=== PATIENT | male | born 1985 | race Hispanic/Latino ===

== ENCOUNTER 2017-07-01 13:39 | Emergency (ER) | payer SELFPAY ==
[~2017-07-01 13:39] MED LIST: Iopamidol 370 76% 100 ML VIAL ONE
[2017-07-01 14:23] LABS: #Basophils 0.1 thou/uL (0.0-0.2); #Monocytes 0.5 thou/uL (0.11-0.59); #Neutrophils 3.8 thou/uL (1.40-6.50); %Basophils 1.2 % (0.0-1.0); %Eosinophils 0.7 % (0.0-10.0); %Lymphocytes 31.3 % (21.0-51.0); %Monocytes 7.1 % (0.0-10.0); Hematocrit 47.2 % (42.0-52.0); Mean Platelet Volume 8.6 fL (7.4-10.4); Red Blood Cell (RBC) Count 5.63 mill/uL (4.70-6.10); White Blood Cell (WBC) Count 6.4 thou/uL (4.8-10.8)
[2017-07-01 14:38] LABS: ALT (SGPT) 79 U/L (8-55); AST (SGOT) 36 U/L (5-34); Alkaline Phosphatase 106 U/L (40-150); Anion Gap 14 mmol/L (10-20); BUN (Urea Nitrogen) 10 mg/dL (8.9-20.6); Bilirubin, Total 0.5 mg/dL (0.2-1.2); Calc. Creatinine Clearance 0 mL/min (70-130); Calcium 9.8 mg/dL (7.8-10.44); Carbon Dioxide 25 mmol/L (22-29); Chloride 105 mmol/L (98-107); Estimated GFR-MDRD Greater than 90; Globulin 3.3 g/dL (2.4-3.5); Lipase 30 U/L (8-78); Protein, Total 8.2 g/dL (6.0-8.3)
--- NOTE | 2017-07-01 15:40 | CT ---
CT OF ABDOMEN AND PELVIS WITH CONTRAST 07/01/17 INDICATION: Epigastric pain. No prior comparison. FINDINGS: Solid abdominal organs are grossly unremarkable. There is a small cyst at the lower pole left kidney. The bowel is incompletely assessed without enteric contrast administration. The imaged lung bases ar e clear. No free air or ascites. Moderate distention of unopacified urinary bladder. The abdominal ao rta is normal in caliber. The regional skeletal structures are intact. IMPRESSION: There is no acute abnormality identified. Incomplete assessment of the bowel without enteric contrast. Correlate clinically. POS: YOAV
== END 2017-07-01 15:30 | disposition home or self-care (01) ==
LOC: SCSER 13:39
DX: S39.011A Strain of muscle, fascia and tendon of abdomen, initial encounter (principal); X50.1XXA Overexertion from prolonged static or awkward postures, initial encounter
CPT/HCPCS: 36415; 74177; 80053; 83690; 85025